=== PATIENT | female | born 1990 | race Two or more races ===

== ENCOUNTER 2017-05-15 10:45 | Inpatient (IN) | payer MEDICAID ==
[~2017-05-15] VITALS: Ht 167.6 cm; Wt 49.9 kg
[2017-05-15 10:45] VITALS: BP 122/76
[~2017-05-15 10:45] MED LIST: Bacitracin Oint UD TOPIC ONE
[2017-05-15 11:31] LABS: MEAN CORPUSCULAR HEMOGLOBIN 26.6 PG (27.0-31.0); MEAN CORPUSCULAR VOLUME 83 FL (80-99); MEAN PLATELET VOLUME 5.4 FL (6.5-10.1); PLATELET COUNT 255 K/UL (150-450); RED BLOOD COUNT 4.83 M/UL (4.20-5.40)
[2017-05-15 11:33] LABS: APPEARANCE,URINE CLEAR; KETONES,URINE NEGATIVE (NEGATIVE); LEUKOCYTE ESTERASE ,URINE 1+ (NEGATIVE); NITRITE,URINE NEGATIVE (NEGATIVE); PH,URINE 6 (4.5-8.0); PROTEIN,URINE 3+ (NEGATIVE); UROBILINOGEN,URINE 1 MG/DL (0.0-1.0)
[2017-05-15 11:44] LABS: ACETAMINOPHEN < 10 ug/mL (10-30); ALANINE AMINOTRANSFERASE 17 U/L (3-33); ALBUMIN/GLOBULIN RATIO 1.2 (1.0-2.7); ALCOHOL 268 mg/dL; ANION GAP 20 (5-15); ASPARTATE AMINO TRANSFERASE 39 U/L (5-40); CALCIUM 8.3 mg/dL (8.6-10.2); CARBON DIOXIDE 27 mEQ/L (20-30); CHLORIDE 87 mEQ/L (98-107); CREATININE 0.8 mg/dL (0.5-0.9); GLOMERULAR FILTRATION RATE > 60 mL/min (>60); HEMOLYSIS 5; POTASSIUM 3.1 mEQ/L (3.4-4.9); SODIUM 134 mEQ/L (135-145); TOTAL PROTEIN 7.9 g/dL (6.6-8.7); WHITE BLOOD COUNT 26.5 K/UL (4.8-10.8)
[2017-05-15 11:45] LABS: BACTERIA,URINE FEW /HPF; SQUAMOUS EPITHELIAL CELL,UR FEW /LPF (NONE/OCC)
[2017-05-15 11:54] LABS: ANISOCYTOSIS 1+; BAND NEUTROPHILS % (MANUAL) 0 % (0-8); BASOPHILS % (MANUAL) 0 % (0-2); EOSINOPHILS % (MANUAL) 0 % (0-3); LYMPHOCYTES % (MANUAL) 1 % (20-45); NEUTROPHILS % (MANUAL) 97 % (45-75); PLATELET ESTIMATE ADEQUATE; PLATELET MORPHOLOGY NORMAL; TOTAL CELLS COUNTED 100
[2017-05-15] MEDS ORDERED: LORazepam Inj 2mg/ml 1ml ONE (12:22)
[2017-05-15] MEDS ORDERED: LORazepam Inj 2mg/ml 1ml IV ONE ×2 (12:30→16:00)
[2017-05-15] MEDS ORDERED: Thiamine HCl 100 MG in D5W 55 ML IVPB SCH (12:30)
[2017-05-15] MEDS ORDERED: Thiamine HCl 100mg/ml 2 ml Inj ONE (12:51)
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
[2017-05-15 14:45] VITALS: BP 128/76
[2017-05-15] MEDS ORDERED: Cefepime HCl 1 GM in D5W 55 ML IVPB ONE (14:45)
[2017-05-15] MEDS ORDERED: Vancomycin 1 GM in D5W 275 ML IVPB ONE (14:45)
[2017-05-15] MEDS ORDERED: metroNIDAZOLE 500mg 100 ML IVPB ONE (14:45)
[2017-05-15] MEDS ORDERED: Cefepime 1gm vial ONE (14:59)
[2017-05-15] MEDS ORDERED: NKM (16:50)
[2017-05-15 17:35] VITALS: BP 131/78
[2017-05-15] MEDS: LORazepam 1mg tab ORAL PRN (18:19)
[2017-05-15] MEDS: chlordiazePOXIDE 25mg Cap ORAL SCH (18:34)
[2017-05-15 18:37] LABS: THYROID STIMULATING HORMONE 0.041 uIU/mL (0.300-4.500)
[2017-05-15 20:00] VITALS: BP 137/83
[2017-05-15] MEDS: Vancomycin 1 GM in D5W 275 ML IVPB SCH (20:21)
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
[2017-05-15] MEDS ORDERED: Folic Acid 1 MG, Magnesium Sulfate 2,000 MG, Multivitamin - 12 Injection 10 ML in NS w/... IV SCH (22:00)
[2017-05-15] MEDS: cefTRIAXone 1gm/D5W 55ml IVPB SCH ×2 (22:08)
[2017-05-15] MEDS: D5NS 1,000 ML IV SCH (22:09)
[2017-05-15] MEDS: Heparin 5000 units/ml inj SUBQ SCH (22:10)
[2017-05-16] VITALS: BP 130/70
[2017-05-16] MEDS: chlordiazePOXIDE 25mg Cap ORAL SCH ×3 (00:08→11:07)
[2017-05-16 04:00] VITALS: BP 128/75
[2017-05-16] MEDS: Vancomycin 1 GM in D5W 275 ML IVPB SCH ×2 (07:21→20:29)
[2017-05-16] MEDS: D5NS 1,000 ML IV SCH ×2 (07:24→17:20)
[2017-05-16 07:51] LABS: MEAN CORPUSCULAR HEMOGLOBIN 28.9 PG (27.0-31.0); MEAN CORPUSCULAR HGB CONC 34.7 G/DL (32.0-36.0); MEAN CORPUSCULAR VOLUME 83 FL (80-99); MEAN PLATELET VOLUME 6.7 FL (6.5-10.1); PLATELET COUNT 178 K/UL (150-450); RED CELL DISTRIBUTION WIDTH 14.8 % (11.6-14.8); WHITE BLOOD COUNT 18.4 K/UL (4.8-10.8)
[2017-05-16 08:07] LABS: ALANINE AMINOTRANSFERASE 13 U/L (3-33); ALBUMIN/GLOBULIN RATIO 1.1 (1.0-2.7); ANION GAP 12 (5-15); ASPARTATE AMINO TRANSFERASE 29 U/L (5-40); CALCIUM 8.4 mg/dL (8.6-10.2); CARBON DIOXIDE 28 mEQ/L (20-30); CHLORIDE 95 mEQ/L (98-107); CREATININE 0.6 mg/dL (0.5-0.9); GLOMERULAR FILTRATION RATE > 60 mL/min (>60); HEMOLYSIS 2; POTASSIUM 3.2 mEQ/L (3.4-4.9); SODIUM 135 mEQ/L (135-145); TOTAL PROTEIN 6.5 g/dL (6.6-8.7)
[2017-05-16 08:15] VITALS: BP 137/88
[2017-05-16] MEDS: Heparin 5000 units/ml inj SUBQ SCH ×2 (08:39→22:19)
--- NOTE | 2017-05-16 08:52 | History & Physical ---
History and Physical History & Physicial seen and examined. Dictating completed Ruben Rose MD May 16, 2017 08:52
--- NOTE | 2017-05-16 08:54 | General Progress Note ---
Assessment/Plan Status: stable Assessment/Plan 1- Sepsis: source ? 2- DT's 3- Alcoholism 4- Anxiety/Depression 4- Gi-DVT prophylaxia Plan: Psych ID consulted Subjective ROS Limited/Unobtainable: No Constitutional: Reports: weakness HEENT: Reports: no symptoms Neurologic/Psychiatric: Reports: anxiety, depressed Allergies: Coded Allergies: No Known Allergies (Unverified , 05/15/17) Objective Last 24 Hour Vital Signs Date Time Temp Pulse Resp B/P (MAP) Pulse Ox O2 Delivery O2 Flow Rate FiO2 05/16/17 04:00 98.1 85 19 128/75 97 Room Air 05/16/17 00:00 98.1 80 19 130/70 98 Room Air 05/15/17 20:00 97.9 87 18 137/83 99 Room Air 05/15/17 17:35 98 19 131/78 100 Room Air 05/15/17 17:35 98 19 131/78 100 Room Air 05/15/17 16:03 98.0 05/15/17 14:45 101.4 106 22 128/76 99 Room Air 05/15/17 10:45 97.5 121 20 122/76 100 Room Air 05/15/17 10:31 98.2 130 18 126/85 99 Room Air Laboratory Tests 05/15/17 11:15: White Blood Count 26.5*H, Red Blood Count 4.83, Hemoglobin 12.8, Hematocrit 40.1 , Mean Corpuscular Volume 83, Mean Corpuscular Hemoglobin 26.6L, Mean Corpuscular Hemoglobin Concent 32.0, Red Cell Distribution Width 15.0H, Platelet Count 255, Mean Platelet Volume 5.4L, Neutrophils (%) (Auto) , Lymphocytes (%) (Auto) , Monocytes (%) (Auto) , Eosinophils (%) (Auto) , Basophils (%) (Auto) , Differential Total Cells Counted 100, Neutrophils % ( Manual) 97H, Lymphocytes % (Manual) 1L, Monocytes % (Manual) 2, Eosinophils % ( Manual) 0, Basophils % (Manual) 0, Band Neutrophils 0, Platelet Estimate Adequate, Platelet Morphology Normal, Anisocytosis 1+, Urine Color Pale yellow, Urine Appearance Clear, Urine pH 6, Urine Specific [place] 1.010, Urine Protein 3+H, Urine Glucose (UA) 1+H, Urine Ketones Negative, Urine Occult Blood 5+H, Urine Nitrite Negative, Urine Bilirubin Negative, Urine Urobilinogen 1H, Urine Leukocyte Esterase 1+H, Urine RBC 10-15H, Urine WBC 2-4, Urine Squamous Epithelial Cells Few, Urine Bacteria Few, Urine HCG, Qualitative Negative, Sodium Level 134L, Potassium Level 3.1L, Chloride Level 87L, Carbon Dioxide Level 27, Anion Gap 20H, Blood Urea Nitrogen 8, Creatinine 0.8, Estimat Glomerular Filtration Rate > 60, Glucose Level 181H, Calcium Level 8.3L, Total Bilirubin 0.3, Aspartate Amino Transf (AST/SGOT) 39, Alanine Aminotransferase ( ALT/SGPT) 17, Alkaline Phosphatase 104, Total Creatine Kinase 391H, Total Protein 7.9, Albumin 4.4, Globulin 3.5, Albumin/Globulin Ratio 1.2, Lipase 36, Thyroid Stimulating Hormone (TSH) 0.041L, Free Thyroxine 1.24, Salicylates Level < 1L, Urine Opiates Screen Negative, Acetaminophen Level < 10L, Urine Barbiturates Screen Negative, Phencyclidine (PCP) Screen Negative, Urine Amphetamines Screen Negative, Urine Benzodiazepines Screen Negative, Urine Cocaine Screen Negative, Urine Marijuana (THC) Screen Negative, Serum Alcohol 268, Rapid Plasma Reagin [Pending], Hepatitis A IgM Antibody [Pending], Hepatitis B Surface Antigen [Pending], Hepatitis B Core IgM Antibody [Pending], Hepatitis C Antibody [Pending], HIV (1&2) Antibody Rapid Negative 05/16/17 06:20: White Blood Count 18.4H, Red Blood Count 3.90L, Hemoglobin 11.3L, Hematocrit 32.5L, Mean Corpuscular Volume 83, Mean Corpuscular Hemoglobin 28.9, Mean Corpuscular Hemoglobin Concent 34.7, Red Cell Distribution Width 14.8, Platelet Count 178, Mean Platelet Volume 6.7, Neutrophils (%) (Auto) , Lymphocytes (%) ( Auto) , Monocytes (%) (Auto) , Eosinophils (%) (Auto) , Basophils (%) (Auto) , Neutrophils % (Manual) [Pending], Lymphocytes % (Manual) [Pending], Platelet Estimate [Pending], Platelet Morphology [Pending], Sodium Level 135, Potassium Level 3.2L, Chloride Level 95L, Carbon Dioxide Level 28, Anion Gap 12, Blood Urea Nitrogen 6L, Creatinine 0.6, Estimat Glomerular Filtration Rate > 60, Glucose Level 112H, Calcium Level 8.4L, Total Bilirubin 0.6, Aspartate Amino Transf (AST/SGOT) 29, Alanine Aminotransferase (ALT/SGPT) 13, Alkaline Phosphatase 100, Total Protein 6.5L, Albumin 3.5, Globulin 3.0, Albumin/ Globulin Ratio 1.1 Height (Feet): 5 Height (Inches): 6.00 Weight (Pounds): 110 General Appearance: no apparent distress EENT: PERRL/EOMI Neck: supple Cardiovascular: normal rate Respiratory/Chest: lungs clear Abdomen: soft Extremities: non-tender Neurologic: instrument technologist II-XII grossly normal, other - depressed and anxious Ruben Rose MD May 16, 2017 08:54
[2017-05-16] MEDS: Folic Acid 1 MG, Magnesium Sulfate 2,000 MG, Multivitamin - 12 Injection 10 ML in NS w/... IV SCH (09:09)
[2017-05-16] MEDS: Thiamine 100mg in D5W 55ml IVPB SCH (09:09)
[2017-05-16 09:36] LABS: ANISOCYTOSIS 1+; BAND NEUTROPHILS % (MANUAL) 0 % (0-8); BASOPHILS % (MANUAL) 0 % (0-2); EOSINOPHILS % (MANUAL) 0 % (0-3); LYMPHOCYTES % (MANUAL) 11 % (20-45); NEUTROPHILS % (MANUAL) 87 % (45-75); PLATELET ESTIMATE ADEQUATE; PLATELET MORPHOLOGY NORMAL; TOTAL CELLS COUNTED 100
[2017-05-16 09:37] LABS: HYPOCHROMASIA 1+
[2017-05-16] MEDS ORDERED: D5W 550ml IV ONE (09:48)
[2017-05-16] MEDS ORDERED: D5NS 1000ml IV ONE ×2 (09:48)
[2017-05-16] MEDS ORDERED: Tubing IV Secondary IV ONE ×2 (09:48)
--- NOTE | 2017-05-16 10:30 | Diagnostic Imaging Report ---
Indication: COUGH Technique: One view of the chest Comparison: none Findings: Lungs and pleural spaces are clear. Heart size is normal. Is incidentally noted Impression: No acute process This agrees with the preliminary interpretation provided overnight by [facility] teleradiology service.
[2017-05-16 12:10] VITALS: BP 142/95
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
[2017-05-16 16:00] VITALS: BP 137/91
[2017-05-16] MEDS: LORazepam 1mg tab ORAL PRN (16:39)
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
[2017-05-16 20:00] VITALS: BP 131/87
[2017-05-16] MEDS ORDERED: Thiamine 100mg in D5W 55ml IVPB SCH (22:00)
[2017-05-16] MEDS: cefTRIAXone 1gm/D5W 55ml IVPB SCH ×2 (22:18)
[2017-05-16] MEDS: chlordiazePOXIDE 25mg Cap ORAL PRN (22:25)
[2017-05-17] VITALS: BP 138/89
[2017-05-17 04:00] VITALS: BP 137/89
[2017-05-17] MEDS: D5NS 1,000 ML IV SCH ×3 (04:37→21:39)
[2017-05-17] MEDS: LORazepam 1mg tab ORAL PRN ×3 (05:43→21:23)
[2017-05-17 07:49] LABS: BASOPHILS % (AUTO) 0.5 % (0.0-2.0); LYMPHOCYTES % (AUTO) 13.1 % (20.0-45.0); MEAN CORPUSCULAR HEMOGLOBIN 27.3 PG (27.0-31.0); MEAN CORPUSCULAR HGB CONC 32.6 G/DL (32.0-36.0); MEAN CORPUSCULAR VOLUME 84 FL (80-99); MEAN PLATELET VOLUME 5.9 FL (6.5-10.1); MONOCYTES % (AUTO) 4.6 % (1.0-10.0); NEUTROPHILS % (AUTO) 80.9 % (45.0-75.0); PLATELET COUNT 154 K/UL (150-450); RED BLOOD COUNT 4.03 M/UL (4.20-5.40); RED CELL DISTRIBUTION WIDTH 15.2 % (11.6-14.8)
[2017-05-17 08:00] VITALS: BP 125/86
[2017-05-17 08:06] LABS: ALANINE AMINOTRANSFERASE 13 U/L (3-33); ANION GAP 9 (5-15); ASPARTATE AMINO TRANSFERASE 23 U/L (5-40); CALCIUM 8.4 mg/dL (8.6-10.2); CARBON DIOXIDE 29 mEQ/L (20-30); CHLORIDE 101 mEQ/L (98-107); CREATININE 0.5 mg/dL (0.5-0.9); GLOMERULAR FILTRATION RATE > 60 mL/min (>60); HEMOLYSIS 3; POTASSIUM 3.4 mEQ/L (3.4-4.9); SODIUM 139 mEQ/L (135-145); TOTAL PROTEIN 6.4 g/dL (6.6-8.7)
[2017-05-17] MEDS: chlordiazePOXIDE 25mg Cap ORAL PRN (08:06)
[2017-05-17] MEDS ORDERED: Thiamine HCl 100mg/ml 2 ml Inj ONE (08:34)
[2017-05-17] MEDS: Vancomycin 1 GM in D5W 275 ML IVPB SCH (08:45)
[2017-05-17] MEDS: Heparin 5000 units/ml inj SUBQ SCH ×2 (08:52→21:00)
[2017-05-17] MEDS: Folic Acid 1 MG, Magnesium Sulfate 2,000 MG, Multivitamin - 12 Injection 10 ML in NS w/... IV SCH (09:42)
[2017-05-17] MEDS: Thiamine 100mg in D5W 55ml IVPB SCH (09:42)
--- NOTE | 2017-05-17 10:01 | Diagnostic Imaging Report ---
Indication: Heavy menses with large clots negative urine test Technique: Transabdominal and transvaginal images Comparison: None Findings: Uterus measures 8.3 cm length by 3 cm AP. Endometrium 4 mm thick. No myometrial abnormality. There is a small amount of free cul-de-sac fluid. Right ovary measures 2.5 cm length. Left ovary measures 2.7 cm length. No adnexal mass Impression: Free cul-de-sac fluid, presumably physiologic Otherwise unremarkable
[2017-05-17 12:00] VITALS: BP 137/90
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
[2017-05-17 16:00] VITALS: BP 127/87
[2017-05-17] MEDS ORDERED: Vancomycin 1.5gm/D5W 250ml 250 ML IVPB SCH (16:00)
[2017-05-17] MEDS ORDERED: D5NS 1000ml IV ONE (16:14)
--- NOTE | 2017-05-17 18:27 | General Progress Note ---
Assessment/Plan Status: stable Assessment/Plan 1- Sepsis: source ? 2- DT's 3- Alcoholism 4- Anxiety/Depression 5- Gi-DVT prophylaxia Plan: pending [facility] Psych ID notes are reveiwed Subjective ROS Limited/Unobtainable: No Constitutional: Reports: no symptoms HEENT: Reports: no symptoms Cardiovascular: Reports: no symptoms Allergies: Coded Allergies: No Known Allergies (Unverified , 05/15/17) Objective Last 24 Hour Vital Signs Date Time Temp Pulse Resp B/P (MAP) Pulse Ox O2 Delivery O2 Flow Rate FiO2 05/17/17 16:00 97.5 67 19 127/87 98 Room Air 05/17/17 12:00 97.9 74 18 137/90 99 Room Air 05/17/17 10:42 97.4 05/17/17 08:00 97.4 79 18 125/86 98 Room Air 05/17/17 04:00 97.6 88 16 137/89 98 Room Air 05/17/17 00:00 97.5 79 16 138/89 95 Room Air 05/16/17 20:00 97.6 79 16 131/87 99 Room Air Intake and Output 05/17/17 05/18/17 19:00 07:00 Intake Total 2967 ml Balance 2967 ml Intake Oral 480 ml IV Total 2487 ml # Voids 1 # Bowel Movements 1 Laboratory Tests 05/17/17 07:30: White Blood Count 9.0#, Red Blood Count 4.03L, Hemoglobin 11.0L, Hematocrit 33.7L, Mean Corpuscular Volume 84, Mean Corpuscular Hemoglobin 27.3, Mean Corpuscular Hemoglobin Concent 32.6, Red Cell Distribution Width 15.2H, Platelet Count 154, Mean Platelet Volume 5.9L, Neutrophils (%) (Auto) 80.9H, Lymphocytes (%) (Auto) 13.1L, Monocytes (%) (Auto) 4.6, Eosinophils (%) (Auto) 1.0, Basophils (%) (Auto) 0.5, Sodium Level 139, Potassium Level 3.4, Chloride Level 101, Carbon Dioxide Level 29, Anion Gap 9, Blood Urea Nitrogen 3L, Creatinine 0.5, Estimat Glomerular Filtration Rate > 60, Glucose Level 139H, Calcium Level 8.4L, Total Bilirubin 0.4, Aspartate Amino Transf (AST/SGOT) 23, Alanine Aminotransferase (ALT/SGPT) 13, Alkaline Phosphatase 70, Total Protein 6.4L, Albumin 3.3L, Globulin 3.1, Albumin/Globulin Ratio 1.0, Vancomycin Level Trough 4.7L Height (Feet): 5 Height (Inches): 6.00 Weight (Pounds): 110 General Appearance: WD/WN EENT: PERRL/EOMI Neck: supple Cardiovascular: normal rate Respiratory/Chest: lungs clear Abdomen: soft Extremities: non-tender 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
[2017-05-17 20:00] VITALS: BP 130/94
[2017-05-17] MEDS ORDERED: cefTRIAXone 1 GM in D5W 55 ML IVPB SCH (21:00)
[2017-05-18] VITALS: BP 127/82
[2017-05-18] MEDS: chlordiazePOXIDE 25mg Cap ORAL PRN ×2 (01:57→09:47)
[2017-05-18 04:00] VITALS: BP 125/84
[2017-05-18 06:18] LABS: BASOPHILS % (AUTO) 0.5 % (0.0-2.0); EOSINOPHILS % (AUTO) 3.3 % (0.0-3.0); LYMPHOCYTES % (AUTO) 24.2 % (20.0-45.0); MEAN CORPUSCULAR HEMOGLOBIN 27.8 PG (27.0-31.0); MEAN CORPUSCULAR HGB CONC 32.8 G/DL (32.0-36.0); MEAN CORPUSCULAR VOLUME 85 FL (80-99); MEAN PLATELET VOLUME 7.2 FL (6.5-10.1); MONOCYTES % (AUTO) 7.8 % (1.0-10.0); NEUTROPHILS % (AUTO) 64.2 % (45.0-75.0); PLATELET COUNT 150 K/UL (150-450); RED BLOOD COUNT 3.94 M/UL (4.20-5.40); RED CELL DISTRIBUTION WIDTH 15.3 % (11.6-14.8); WHITE BLOOD COUNT 6.8 K/UL (4.8-10.8)
[2017-05-18] MEDS: D5NS 1,000 ML IV SCH (06:31)
[2017-05-18 06:37] LABS: ALANINE AMINOTRANSFERASE 15 U/L (3-33); ALBUMIN/GLOBULIN RATIO 1.1 (1.0-2.7); ANION GAP 11 (5-15); ASPARTATE AMINO TRANSFERASE 28 U/L (5-40); CALCIUM 8.7 mg/dL (8.6-10.2); CARBON DIOXIDE 26 mEQ/L (20-30); CHLORIDE 103 mEQ/L (98-107); CREATININE 0.4 mg/dL (0.5-0.9); GLOMERULAR FILTRATION RATE > 60 mL/min (>60); HEMOLYSIS 2; POTASSIUM 3.8 mEQ/L (3.4-4.9); SODIUM 140 mEQ/L (135-145); TOTAL PROTEIN 6.2 g/dL (6.6-8.7)
--- NOTE | 2017-05-18 07:48 | General Progress Note ---
Assessment/Plan Status: stable Assessment/Plan 1- Sepsis: source ? 2- DT's 3- Alcoholism 4- Anxiety/Depression 5- Gi-DVT prophylaxia Plan: pending [facility] Psych ID notes are reviewed Once clear by ID may follow as outpatient Subjective ROS Limited/Unobtainable: No Constitutional: Reports: no symptoms HEENT: Reports: no symptoms Cardiovascular: Reports: no symptoms Allergies: Coded Allergies: No Known Allergies (Unverified , 05/15/17) Objective Last 24 Hour Vital Signs Date Time Temp Pulse Resp B/P (MAP) Pulse Ox O2 Delivery O2 Flow Rate FiO2 05/18/17 04:00 97.8 82 16 125/84 97 Room Air 05/18/17 00:00 97.4 72 16 127/82 99 Room Air 05/17/17 20:00 97.2 74 17 130/94 100 Room Air 05/17/17 16:00 97.5 67 19 127/87 98 Room Air 05/17/17 12:00 97.9 74 18 137/90 99 Room Air 05/17/17 10:42 97.4 05/17/17 08:00 97.4 79 18 125/86 98 Room Air Laboratory Tests 05/18/17 04:45: White Blood Count 6.8, Red Blood Count 3.94L, Hemoglobin 11.0L, Hematocrit 33.4L , Mean Corpuscular Volume 85, Mean Corpuscular Hemoglobin 27.8, Mean Corpuscular Hemoglobin Concent 32.8, Red Cell Distribution Width 15.3H, Platelet Count 150, Mean Platelet Volume 7.2, Neutrophils (%) (Auto) 64.2, Lymphocytes (%) (Auto) 24.2, Monocytes (%) (Auto) 7.8, Eosinophils (%) (Auto) 3.3H, Basophils (%) (Auto) 0.5, Sodium Level 140, Potassium Level 3.8, Chloride Level 103, Carbon Dioxide Level 26, Anion Gap 11, Blood Urea Nitrogen 3L, Creatinine 0.4L, Estimat Glomerular Filtration Rate > 60, Glucose Level 110H, Calcium Level 8.7, Total Bilirubin 0.3, Aspartate Amino Transf (AST/SGOT) 28, Alanine Aminotransferase (ALT/SGPT) 15, Alkaline Phosphatase 68, Total Protein 6.2L, Albumin 3.3L, Globulin 2.9, Albumin/Globulin Ratio 1.1 Height (Feet): 5 Height (Inches): 6.00 Weight (Pounds): 110 General Appearance: no apparent distress EENT: PERRL/EOMI Neck: supple Cardiovascular: normal rate Respiratory/Chest: lungs clear Abdomen: soft Extremities: non-tender Neurologic: bean weigher II-XII grossly normal Ruben Rose MD May 18, 2017 07:48
[2017-05-18 08:00] VITALS: BP 133/92
[2017-05-18] MEDS ORDERED: Thiamine HCl 100mg/ml 2 ml Inj ONE (08:01)
[2017-05-18] MEDS: Heparin 5000 units/ml inj SUBQ SCH (08:09)
[2017-05-18] MEDS: Folic Acid 1 MG, Magnesium Sulfate 2,000 MG, Multivitamin - 12 Injection 10 ML in NS w/... IV SCH (08:19)
[2017-05-18] MEDS: Thiamine 100mg in D5W 55ml IVPB SCH (08:19)
--- NOTE | 2017-05-18 10:16 | History and Physical Report ---
DATE OF ADMISSION: 05/15/2017 SOURCE OF INFORMATION: Patient and EMR. HISTORY OF PRESENT ILLNESS: The patient is a 26-year-old female with a history of alcoholism. The patient reported that she has been brought secondary to alcoholism. At the time of evaluation, the patient denies any chest pain, shortness of breath, or abnormal bleeding. PAST SURGICAL HISTORY: Denies. HOSPITAL MEDICATIONS: Including lorazepam, vancomycin, thiamine, and Librium. ALLERGIES: NKDA. SOCIAL HISTORY: Positive for alcoholism for seven years, reported one bottle of the hard liquor a day. Denies illicit drug abuse or tobacco abuse. The patient reported she is and has one child. FAMILY HISTORY: Reviewed and noncontributory. REVIEW OF SYSTEM: All 12 elements of review of systems reviewed with the patient. Pertinent positive and negative as above. PHYSICAL EXAMINATION: VITAL SIGNS: Blood pressure 135/80, pulse rate 20-28, respiratory rate 18, and pulse oximetry 99% on room air. HEAD AND NECK: Atraumatic and normocephalic. CHEST: Clear to auscultation. HEART: S1 and S2. Regular rate and rhythm. ABDOMEN: Soft. No organomegaly. MUSCULOSKELETAL: No gross focal motor deficit. NEUROLOGY: Awake, alert, and oriented x3. LABORATORY DATA: Lab results dated 05/15/2017 shows WBC 26, hemoglobin 12.8, and platelets 255. Sodium 134, potassium 3.1, BUN 8, and creatinine 0.8. Serum urine shows 5+ occult blood and 3+ protein. Serology is pending. ASSESSMENT: 1. Sepsis. 2. Alcoholism. 3. Anemia. 4. Hyponatremia. 5. Hypokalemia. 6. Abnormal blood sugar. 7. Borderline hyperthyroidism. PLAN OF CARE: I will consult psychiatrist and Infectious Diseases. We will continue with the empiric antibiotic ceftriaxone. Ruben Rose M.D. DR: DINORA JOB#: [id number] CC: KATHIE
--- NOTE | 2017-05-18 11:17 | Wound Care Consultation ---
Wound Assessment Wound Assessment #1: Wound Number: 1 Wound Present on Admission: Yes New Wound: No Status Change of Wound: No Wound Location Body Site Modif: right Wound Location Body Site: other - forehead Wound Type: scab - scattered Dami Test: Does not Dami Wound Thickness: Full Thickness Percent of Wound Black/Brown: 100 - scattered on forehead Wound Drainage Amount: None Wound Drainage Odor: None/Absent Tissue Surrounding Wound: Erythemic Wound General Appearance: Blackened, Necrotic - scab Wound Assessment #2: Wound Number: 2 Wound Present on Admission: Yes New Wound: No Status Change of Wound: No Wound Location Body Site Modif: right Wound Location Body Site: knee Wound Type: scab - scattered Dami Test: Does not Dami Wound Thickness: Full Thickness Wound Length: 7.0 Wound Width: 4.0 Wound Depth: utd Percent of Wound Black/Brown: 100 - scattered Wound Drainage Amount: None Wound Drainage Odor: None/Absent Tissue Surrounding Wound: Erythemic Wound General Appearance: Necrotic - scab Wound Assessment #3: Wound Number: 3 Wound Present on Admission: Yes New Wound: No Status Change of Wound: No Wound Location Body Site Modif: left Wound Location Body Site: knee Wound Type: scab - scattered Dami Test: Does not Dami Wound Thickness: Full Thickness Percent of Wound Black/Brown: 100 - scattered Wound Drainage Amount: None Wound Drainage Odor: None/Absent Tissue Surrounding Wound: Erythemic Wound General Appearance: Necrotic - scab Wound Assessment #4: Wound Number: 4 Wound Present on Admission: Yes New Wound: No Status Change of Wound: No Wound Location Body Site Modif: left Wound Location Body Site: elbow Wound Type: scab - scattered Dami Test: Does not Dami Wound Thickness: Full Thickness Wound Length: 2.0 Wound Width: 2.0 Wound Depth: utd Percent of Wound Black/Brown: 100 - scattered scabs Wound Drainage Amount: None Wound Drainage Odor: None/Absent Tissue Surrounding Wound: Erythemic Wound General Appearance: Necrotic - scabs Wound Assessment #5: Wound Number: 5 Wound Present on Admission: Yes New Wound: No Status Change of Wound: No Wound Location Body Site Modif: right Wound Location Body Site: arm - elbow area Wound Type: scab - scattered Dami Test: Does not Dami Wound Thickness: Full Thickness Percent of Wound Black/Brown: 100 - scattered Wound Drainage Amount: None Wound Drainage Odor: None/Absent Tissue Surrounding Wound: Erythemic Wound General Appearance: Necrotic - scabs Wound Assessment #6: Wound Number: 6 Wound Present on Admission: Yes New Wound: No Status Change of Wound: No Wound Location Body Site Modif: left Wound Location Body Site: other - thumb Wound Type: scab - scattered Dami Test: Does not Dami Wound Thickness: Partial Thickness Percent of Wound Black/Brown: 100 - scattered Wound Drainage Amount: None Wound Drainage Odor: None/Absent Tissue Surrounding Wound: Erythemic Wound General Appearance: Necrotic - scattered scabs Wound Assessment #7: Wound Number: 7 Wound Present on Admission: Yes New Wound: No Status Change of Wound: No Wound Location Body Site Modif: left Wound Location Body Site: face - side of face Wound Type: scab - scattered scabs Dami Test: Does not Dami Wound Thickness: Partial Thickness Percent of Wound Black/Brown: 100 - scattered scab Wound Drainage Amount: None Wound Drainage Odor: None/Absent Tissue Surrounding Wound: Erythemic Wound General Appearance: Necrotic - dry scabs Wound Comment #1 right side forehead scattered scabs. #2 right knee scattered scabs. #3 left knee scattered scabs. #4 left elbow scattered scabs. #5 right arm/ elbow area scattered scabs. #6 left thumb scattered scabs. #7 left side of face scattered scabs. Recommendation. -Local wound care as ordered. -Keep sites clean and dry. -Turn and reposition. -Optimize nutrition. -Avoid shear and friction. -Assess and notify MD for any changes of condition to skin. SHARYN SHEIKH May 18, 2017 11:17
[2017-05-18 12:00] VITALS: BP 129/89
[2017-05-18] MEDS ORDERED: LEXAPRO10 MG ORAL (12:33)
[2017-05-18] MEDS ORDERED: D5NS 1000ml IV ONE (13:04)
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
--- NOTE | 2017-05-19 12:00 | General Progress Note ---
Assessment/Plan Status: stable Assessment/Plan anxiety d/o mdd -the pt was prescribed lexapro Subjective Date patient seen: May 18, 2017 Neurologic/Psychiatric: Reports: anxiety, emotional problems Allergies: Coded Allergies: No Known Allergies (Unverified , 05/15/17) Subjective the pt is doing better on lexapro. no side effects. Objective Last 24 Hour Vital Signs Date Time Temp Pulse Resp B/P (MAP) Pulse Ox O2 Delivery O2 Flow Rate FiO2 05/18/17 12:00 97.3 77 20 129/89 99 Room Air Height (Feet): 5 Height (Inches): 6.00 Weight (Pounds): 110 General Appearance: no apparent distress, alert, thin Neurologic: alert, oriented x 3, responsive, depressed affect Maximo Akins M.D. May 19, 2017 12:00
--- NOTE | 2017-05-19 15:42 | Cardiology Report ---
APPROVED REPORT EXAM: Two-dimensional and M-mode echocardiogram with Doppler and color Doppler. INDICATION Murmur M-Mode DIMENSIONS IVSd1.1 (0.7-1.1cm)Left Atrium (MM)3.2 (1.6-4.0cm) LVDd4.8 (3.5-5.6cm)Aortic Root2.9 (2.0-3.7cm) PWd0.8 (0.7-1.1cm)Aortic Cusp Exc.2.0 (1.5-2.0cm) LVDs3.2 (2.5-4.0cm) PWs1.4 cm Technically difficult study due to poor acoustic windows. Study quality precludes accurate assessment of regional wall motion. Normal left ventricular chamber size, systolic function and wall motion. Left ventricular ejection fraction estimated to be 50 %. No evidence of ventricular hypertrophy. No evidence of pericardial fat or effusion. All other cardiac chamber sizes are within normal limits. Normal appearing aortic, mitral, pulmonic and tricuspid valves. Mild mitral annulus and aortic root calcification. IVC dilated at 1.8 cm with physiologic collapse. A color flow and spectral Doppler study was performed and revealed: No aortic regurgitation. Trace mitral regurgitation. Mitral inflow velocities indicates normal left ventricular diastolic function. Mild tricuspid regurgitation. Tricuspid systolic velocities suggests peak right ventricular systolic pressure of 29 mmHg. No pulmonic regurgitation present.
[2017-05-20 07:49] LABS: OTHERS PATHOLOGIST COMMENT
--- NOTE | 2017-05-20 11:04 | Discharge Summary ---
Discharge Summary Hospital Course Date of Admission May 15, 2017 at 17:22 Date of Discharge May 18, 2017 at 13:05 Admitting Diagnosis withdrawal/fever HPI Macy Benson is a 26 year old female who was admitted on May 15, 2017 at 17:22 for Withdrawal, Fever Hospital Course [id number] Discharge Discharge Disposition Patient was discharged to Home (01) Discharge Diagnoses: Klaudia Harley NP May 20, 2017 11:04
--- NOTE | 2017-05-21 03:30 | Discharge Summary 2 SIG ---
DATE OF ADMISSION: 05/15/2017 DATE OF DISCHARGE: 05/18/2017 CONSULTANTS: 1. Sanchez Obregon M.D. 2. Maximo Akins M.D. BRIEF HOSPITAL COURSE: The patient is a 26-year-old female with history of alcoholism, who was taken by EMS. She was picked up at [facility] and looked like she was shaking from anxiety according to paramedics. The patient admits to drinking alcohol. On evaluation at ED, WBC was elevated to 26.5. Alcohol level was elevated to 268. Head CT showed no intracranial hemorrhage, no mass effect, or edema. There was left parietal swelling. Chest x-ray showed no acute process. She was given thiamine and was started on IV hydration and was given Ativan. She had an elevated temperature of 101.4 degrees and was started on antibiotics. She was then admitted to medical floor for sepsis, alcoholism, hyponatremia, and anemia. She had severe leukocytosis with a left shift. She was started on empiric antibiotics with vancomycin and ceftriaxone. She was also screened for STDs and HIV screen was negative. Hepatitis panel was negative. She had a transvaginal ultrasound done, which was unremarkable. There was presence of free fluid in the cul-de-sac area, which is presumably physiologic. She had psychiatric evaluation and was diagnosed to have posttraumatic stress disorder with alcohol dependence and major depressive disorder. She was given Lexapro 10 mg at bedtime. She came in with multiple scabs. Wound care was rendered. She was given banana bag with thiamine and folic acid and Librium. Alcohol intoxication resolved. Flow murmur heard during admission resolved and blood culture did not isolate any growth. Plan for [facility] was canceled. A transthoracic echocardiogram showed normal appearing aortic, mitral, pulmonic, and tricuspid valves. Ejection fraction was 50%. There was no evidence of infection. The patient was cleared to be discharged off antibiotic treatment. She was eventually discharged home. FINAL DIAGNOSES: 1. Possible sepsis. 2. Delirium tremens. 3. Alcoholism. 4. Anxiety. 5. Depression. 6. Mild rhabdomyolysis. 7. Anion gap without acidosis secondary to acute ethanol intoxication, resolved. 8. Multiple superficial lacerations and scabs presumably status post recent fall, present on admission. 9. Subclinical hyperthyroidism. DISPOSITION: The patient was discharged home. DISCHARGE MEDICATIONS: Refer to medication list. The patient was given prescription for Lexapro. FOLLOWUP: The patient was provided a list of mental health clinics and was provided contact and address information regarding [facility] programs. Ruben Rose M.D. I have been assigned to dictate discharge summary on this account and I was not involved in the patient's management. Klaudia Harley N.P. DR: HARRISON JOB#: [id number] CC:
== END 2017-05-18 13:05 | disposition home or self-care (01) | DRG 720 ==
LOC: EDBD 10:45 → EMR 13:06 → EDBEDREQ 16:40 → 3E 17:22
DX: A41.9 Sepsis, unspecified organism (principal); F10.231 Alcohol dependence with withdrawal delirium; M62.82 Rhabdomyolysis; E87.1 Hypo-osmolality and hyponatremia; F41.9 Anxiety disorder, unspecified; F32.9 Major depressive disorder, single episode, unspecified; F43.10 Post-traumatic stress disorder, unspecified; E87.6 Hypokalemia; E86.0 Dehydration; E05.80 Other thyrotoxicosis without thyrotoxic crisis or storm; S00.81XA Abrasion of other part of head, initial encounter; S40.812A Abrasion of left upper arm, initial encounter; S40.811A Abrasion of right upper arm, initial encounter; S80.812A Abrasion, left lower leg, initial encounter; S80.811A Abrasion, right lower leg, initial encounter; X58.XXXA Exposure to other specified factors, initial encounter
CPT/HCPCS: 36415; 70450; 71010; 76536; 76830; 76856; 80053; 80202; 80300; 80329; 81003; 81025; 82550; 83690; 84436; 84439; 84443; 85007; 85025; 86592; 86703; 86705; 86709; 86803; 87040; 87081; 87340; 93306; 99285; J8499